=== PATIENT | male | born 1940 | race Caucasian/White ===

== ENCOUNTER → 2016-12-10 | Outpatient (CLI) | payer OTHER ==
--- NOTE | 2016-12-10 09:37 | US ---
Right Upper Quadrant Sonogram December 10, 2016 Indication: Indeterminate hypodensity in dome of liver. Please characterize with ultrasound. Findings: The nonspecific hypodense lesion in the dome of the liver corresponds to a well-circumscrib ed anechoic benign cyst measuring 3.4 x 3.2 x 2.0 cm. The cyst is identified in the previous report a nd on the ultrasound imaging to be in the right lobe; however, the lesion truly resides in the medial segment left lobe of the liver. Several smaller simple and minimally complex cysts are scattered thr oughout the liver. No mass or suspicious lesion. The normal-sized liver, measuring 14 cm in the midax illary line, has normal echogenicity and echotexture. No biliary dilation. The gallbladder is normal. No intraluminal stones, sludge, wall thickening, or sonographic Stover sig n. Common bile duct is normal caliber (5 mm). Portal vein is patent. The abdominal aorta is normal caliber with mild calcified atheroma. The right kidney is unremarkable. No hydronephrosis. The right kidney measures 11.2 cm in length x 5. 9 x 5.4 cm axially. A benign simple cyst in the central aspect of the right kidney measures 4.3 x 3.3 x 3.2 cm. No free fluid. The imaged portions of the pancreatic neck, head, and central body are normal. The pa ncreatic tail is obscured by bowel gas. Impressions 1. Benign hepatic cyst in dome of liver corresponds to finding on CT. No suspicious liver lesion. 2. Normal gallbladder. No biliary dilation or common bile duct stone. 3. Benign right renal cyst.
== END ==
LOC: CIMAGING 07:50
PROVIDERS: ATTEND Internal Medicine
DX: K76.89 Other specified diseases of liver (principal); N28.1 Cyst of kidney, acquired
CPT/HCPCS: 76705-PO

== ENCOUNTER → 2016-12-21 | Outpatient (CLI) | payer OTHER ==
--- NOTE | 2016-12-21 16:03 | DX ---
Abdomen single view 1031 hours Indication: Follow up left ureteral stone. Comparison: Abdominal radiograph dated November 02, 2016. Findings: A 6-mm calculus overlies the lower pole of the left kidney. The additional calculi previous ly on the October 2016 study are no longer evident. No calculi are evident along the course of the u reters or in the urinary bladder. Moderate constipation. Impression: Decreasing number of left renal calculi since October 2016.
== END ==
LOC: FIMAGING 10:24
PROVIDERS: ATTEND Specialist
DX: N20.0 Calculus of kidney (principal)

== ENCOUNTER → 2018-05-20 | Outpatient (CLI) | payer OTHER | LOC: CIMAGING 12:14 | PROVIDERS: ATTEND Specialist | DX: N20.0 Calculus of kidney (principal) | CPT/HCPCS: 74018-PO ==

== ENCOUNTER → 2018-05-23 | Outpatient (CLI) | payer OTHER | LOC: CIMAGING 17:44 | PROVIDERS: ATTEND Specialist | DX: N20.2 Calculus of kidney with calculus of ureter (principal); N13.30 Unspecified hydronephrosis; N26.1 Atrophy of kidney (terminal); I70.0 Atherosclerosis of aorta | CPT/HCPCS: 74176-PO ==

== ENCOUNTER 2018-05-24 18:08 | Inpatient (IN) | payer OTHER ==
--- NOTE | 2018-05-24 18:29 | EDPHY ---
H & P Stated Complaint: M.D. sent Time Seen by Provider: 05/24/18 18:28 - Personal History Current Tetanus/Diphtheria Vaccine: Yes Tetanus Vaccine Date: < 10 YEARS - Medical/Surgical History Hx Asthma: No Hx Chronic Respiratory Disease: No Hx Diabetes: No Hx Cardiac Disease: Yes Hx Renal Disease: Yes Hx Cirrhosis: No Hx Alcoholism: No Hx HIV/AIDS: No Hx Splenectomy or Spleen Trauma: No Other PMH: med hx-cholesterol,cad. surg-double hernia,left wrist - Social History Smoking Status: Former smoker Constitutional: Initial Vital Signs Temperature (C) 36.4 C 05/24/18 18:18 Heart Rate 52 L 05/24/18 18:18 Respiratory Rate 15 05/24/18 18:18 Blood Pressure 157/85 H 05/24/18 18:18 O2 Sat (%) 93 05/24/18 18:18 O2 Delivery Mode Room Air Allergies/Adverse Reactions: Penicillins Allergy (Unknown, Verified 05/24/18 19:26) Home Medications: Medication Instructions Recorded Alendronate Sodium [Fosamax 70 MG 70 mg PO WE@0700 05/24/18 (*)] Atorvastatin Calcium [Lipitor 40 40 mg PO DAILY 05/24/18 mg (*)] Herbals/Supplements -Info Only 1 ea PO DAILY 05/24/18 Metoprolol Succinate 12.5 mg PO HS 05/24/18 Medical Decision Making ED Course/Re-evaluation: CHIEF COMPLAINT: Obstructive nephrolithiasis HISTORY OF PRESENT ILLNESS: 77 y/o male with history of CAD presents at the request of his urologist, Dr. Hilton, for evaluation of bilateral obstructing ureteral stones. Additionally, patient has hyperkalemia and renal insufficiency secondary to the obstructive stones. The patient's symptoms began last Wednesday afternoon after he went horseback riding with his granddaughter. He has followed up in an outpatient setting with Dr. Hilton. Today, he was noted to have elevated creatinine and potassium levels, and referred to the emergency department for further workup and admission. He states he has been urinating normally and that his urine is a normal color. He denies fever, chest pain, shortness of breath, abdominal pain, hematuria, dysuria, or other associated symptoms. REVIEW OF SYSTEMS: A 10 point review of systems was performed and is negative with the exception of the elements mentioned in the history of present illness. PHYSICAL EXAM: HR, BP, O2 Sat, RR. Temp noted General Appearance: Alert, well hydrated, appropriate, and non-toxic appearing. Head: Atraumatic without scalp tenderness or obvious injury Eyes: Pupils equal, round, reactive to light and accommodation, EOMI, no trauma , no injection. Ears: Clear bilaterally, no perforation, normal landmarks Nose: Atraumatic, no rhinorrhea, clear. Throat: There is no erythema or exudates, no lesions, normal tonsils, mucus membranes moist. Neck: Supple, 2+ carotid upstroke, nontender, no lymphadenopathy. Respiratory: No retractions, no distress, no wheezes, and no accessory muscle use. Lungs are clear to auscultation bilaterally. Cardiovascular: Regular rate and rhythm, no murmurs, rubs, or gallops. Bilateral carotid, radial, dorsalis pedis, and posterior tibial pulses intact. Good capillary refill all extremities. Gastrointestinal: Abdomen is soft, nontender, non-distended, no masses, no rebound, no guarding, no peritoneal signs. Musculoskeletal: Normal active ROM of all extremities, atraumatic. Neurological: Alert, appropriate, and interactive. The patient has normal DTRs and non-focal cranial nerves, motor, sensory, and cerebellar exam. Skin: No rashes, good turgor, no nodules on palpation. Past medical history: Hyperlipidemia, CAD Past surgical history: Hernia repair, left wrist surgery Family history: Noncontributory Social history: Lives in [place]. . Retired. DIAGNOSTICS/PROCEDURES/CRITICAL CARE TIME: The 12 lead EKG was interpreted by myself. See hard copy and/or "tracemaster" electronic copy for interpretation. Sinus rhythm, rate 53. No EKG changes associated with hyperkalemia. DIFFERENTIAL DIAGNOSIS: Includes but not limited to acute renal failure secondary to pre-renal causes, intraparenchymal causes, post-renal causes; hyperkalemia, pyelonephritis, shingles, diverticulitis, appendicitis, and aortic aneurysm. MEDICAL DECISION MAKIN77 y/o male presents with post-renal kidney failure secondary to bilateral ureteral obstruction. Dr. Hilton, urologist, is following this patient. Plan to admit. Plan for labs including CBC, chemistries, liver, lipase, UA. Potassium 5.4. No EKG changes associated with hyperkalemia. Patient's creatinine is 7.7. 18:30 Consulted with hospitalist service. Dr. Jones accepts admission to PCU for renal failure secondary to bilateral ureteral obstruction, hyperkalemia. 18:[address] Bill, natural resource specialist. She does not recommend any intervention past resolution of the obstruction at this time. She will follow the patient's case. 20:[address] Hilton, urologist. He will order bilateral nephrostomy tubes through IR for the patient this evening. Patient will be admitted as above for perioperative management. - Data Points Laboratory Results: Laboratory Results 05/24/18 18:33 05/24/18 18:33 Sodium 140 mEq/L mEq/L (135-145) Potassium 5.4 mEq/L H mEq/L (3.3-5.0) Chloride 107 mEq/L mEq/L (97-110) Carbon Dioxide 15 mEq/l L mEq/l (22-31) Anion Gap 18 mEq/L H mEq/L (8-16) BUN 75 mg/dL H mg/dL (7-23) Creatinine 7.2 mg/dL H mg/dL (0.7-1.3) Estimated GFR 7 Glucose 80 mg/dL mg/dL (70-100) Calcium 8.7 mg/dL mg/dL (8.5-10.4) Total Bilirubin 0.4 mg/dL mg/dL (0.1-1.4) Conjugated Bilirubin 0.4 mg/dL mg/dL (0.0-0.5) Unconjugated Bilirubin 0.0 mg/dL mg/dL (0.0-1.1) AST 13 IU/L L IU/L (17-59) ALT 26 IU/L IU/L (21-72) Alkaline Phosphatase 48 IU/L IU/L (38-126) Total Protein 7.3 g/dL g/dL (6.3-8.2) Albumin 3.9 g/dL g/dL (3.5-5.0) Lipase 639 IU/L H IU/L (23-300) Departure - Departure Disposition: [facility] Acute Clinical Impression: Bilateral ureteral obstruction, Renal insufficiency, Hyperkalemia Condition: Fair Report Scribed for: Eitan Bazzi Report Scribed by: Sarah Mendoza Date of Report: 05/24/18 Time of Report: 18:33
--- NOTE | 2018-05-24 18:39 | CPEKG ---
Heart Rate: 53 RR Interval: 1132 P-R Interval: 152 QRSD Interval: 88 QT Interval: 436 QTC Interval: 410 P Brandt: 65 QRS Brandt: -6 T Wave Brandt: 29 EKG Severity - NORMAL ECG - EKG Impression: SINUS RHYTHM Electronically Signed By: Eitan Bazzi 24-May-2018 21:43:45
[2018-05-24 19:15] LABS: PLATELET COUNT 194 10^3/uL (150-400)
[2018-05-24] MEDS ORDERED: ceFAZolin 2 GM/DEXTROSE 100 ML IV ONE (20:25)
--- NOTE | 2018-05-24 20:31 | SOAPPROG ---
[facility] Progress Note Assessment/Plan: Assessment: Renal failure & hyperkalemia due to obstructing large bilateral ureterolithiasis : stable at this moment. No acute EKG changes, as per Dr. Bazzi. Plan: 1. Stat bilateral nephrostomy tube placement by IR tonight. 2. Ancef IV on-call to be given prior to IR procedure. 3. Currently on schedule to undergo intraoperative ureteroscopy & holmium laser lithotripsy of ureteral calculi this AM. Will continue w/ this surgical management plan for now, but might need to delay if he becomes clinically unstable between now and then. Subjective: Pt. seen in my office earlier today & noted on 05/23 CT to have large obstructing bilateral ureteral calculi. Pt. called at home & instructed to immediately present to ER once BMP results received from lab. Objective: Vital Signs Temp Pulse Resp BP Pulse Ox 36.4 C 52 L 15 157/85 H 93 05/24/18 18:18 05/24/18 18:18 05/24/18 18:18 05/24/18 18:18 05/24/18 18:18 Laboratory Results 05/24/18 18:40 ICD10 Worksheet Patient Problems: Problems Problem Status Onset Bilateral ureteral obstruction Acute Hyperkalemia Acute Renal insufficiency Acute
--- NOTE | 2018-05-24 20:47 | GHP ---
[f rep st] HISTORY AND PHYSICAL DATE OF ADMISSION: 05/24/2018 CHIEF COMPLAINT: Hyperkalemia. HISTORY OF PRESENT ILLNESS: This is a 77-year-old male with known kidney stones, who was referred fr om Dr. Hilton's office after he was noted to have a high potassium in clinic today. The patient repo rts some left lower quadrant pain that is described as moderate. It comes and goes. He is making ur ine. He has been able to eat. He denies any fevers or chills currently. He did have some chills 2 nights ago. PAST MEDICAL HISTORY: Kidney stones, hypertension, dyslipidemia, as well as osteopenia. PAST SURGICAL HISTORY: Vasectomy, tonsillectomy, bilateral hernia repair, wrist ORIF. HOME MEDICATIONS: Reviewed. Refer to [employer] for details. ALLERGIES: Penicillin. SOCIAL HISTORY: Lives in [place] with his . He drinks alcohol occasionally. He denies any to bacco or illicit drug use. FAMILY HISTORY: Reviewed and noncontributory. REVIEW OF SYSTEMS: Comprehensive 10-point review of systems was done and is negative, except for as mentioned in the HPI. PHYSICAL EXAM: VITAL SIGNS: Blood pressure 137/85, pulse 52, respiratory rate 15, O2 saturation 93% on room air. Temperature afebrile. GENERAL: No acute distress. HEENT: Head normocephalic, atra umatic. Eyes are PERRLA. Sclerae anicteric. Mouth: Moist mucous membranes. NECK: Supple. No lymph adenopathy. CARDIOVASCULAR: S1-S2. No murmurs, rubs, clicks, gallops. No JVD. No lower extremity edema. PULMONARY: Lungs are clear. No wheezes, rales, or rhonchi. ABDOMEN: Soft, nontender, non distended. No guarding or rebound tenderness. Normoactive bowel sounds. EXTREMITIES: No clubbing or cyanosis. NEURO: Cranial nerves 2-12 grossly intact. No focal motor or sensory deficits. SKIN: Clear. No rashes. DIAGNOSTICS: CT abdomen and pelvis, done yesterday, 05/23/2018, shows moderate bilateral hydronephr osis, left greater than right, with bilateral ureterolithiasis, with a left mid ureteral 13 mm calcul us, and 2 right mid ureteral calculi, measuring up to 16 mm. Labs: WBC 7.5, hemoglobin 12.6, hematocrit 37.4, platelets 194. Sodium 140. Potassium 5.4; it was 6.4 earlier today. Chloride 107, BUN 75, creatinine 7.2, glucose 80. UA: 2+ blood, 10-15 RBCs, 1+ ba cteria. EKG, which I visualized and personally interpreted, shows sinus rhythm, rate 53 beats per minute. No acute ischemic changes. No peaked T-waves. Normal QRS. ASSESSMENT/PLAN: 1. This is a 77-year-old male, presenting with bilateral ureteral obstruction and obstructive uropat hy causing acute kidney injury. I discussed the case with Dr. Bazzi in the emergency department, wh o has been in contact with Dr. Hilton, who plans for nephrostomy tube placement tomorrow. I think th is is reasonable, given his potassium of 5.4. He will be monitored on telemetry. We will defer any further treatment of his hyperkalemia at this time. We will repeat a metabolic panel in the morning. 2. Hypertension. Will continue home dose of metoprolol. Monitor blood pressure. 3. Apparent history of osteopenia or osteoporosis. He is on Fosamax. Will hold Fosamax, given his acute kidney injury. The patient requests to be full code status. /[id number]/MODL
[2018-05-24] MEDS ORDERED: METOPROLOL SUCCINATE XR 25 MG TAB PO SCH (21:00)
[2018-05-24] MEDS ORDERED: fentaNYL 100 MCG/2 ML INJ IVP PRN (22:05)
[2018-05-24] MEDS ORDERED: MIDAZOLAM 2 MG/2 ML VIAL IVP PRN (22:05)
[2018-05-24] MEDS ORDERED: FLUMAZENIL 0.5 MG/5 ML MDV IVP PRN (22:05)
[2018-05-24] MEDS ORDERED: MEPERIDINE 25 MG/ML SYR IVP PRN (22:05)
[2018-05-24] MEDS ORDERED: NALOXONE HCL 0.4 MG/ML INJ IVP PRN (22:05)
--- NOTE | 2018-05-24 22:49 | PDPROPOC ---
Sedation Plan of Care Sedation Plan of Care: vital signs stable, mental status noted, patient educated of risks, benefits, alternatives, patient can tolerate sedation ASA Classification: ASA 3 Planned drugs: fentanyl, midazolam Mallampati Score: Class 1 Mallampati Reference Image: Patient passed 3-3-2 rule?: Yes
[2018-05-24] MEDS ORDERED: fentaNYL 100 MCG/2 ML INJ ONE (23:22)
[2018-05-24] MEDS: NS 1,000 ML IV SCH (23:35)
--- NOTE | 2018-05-25 00:09 | PDRADPN ---
Radiology Procedure Note Date of Procedure: 05/25/18 Radiologist: Rhonda Mishra Pre-op Diagnosis: BILATERAL RENAL/URETERAL STONES Post-op Diagnosis: SAME Indication: ELEVATED CR AND K Procedure: BILATERAL PERC NEPH ACCESS Finding(s): COMPLETE OBSTRUCTION ON LT. NO OBSTRUCTION ON RIGHT WITH RAPID DRAINAGE TO BLADDER. RT RENAL CYST NEAR PELVIS Inf/Abcess present in the surg proc area at time of surgery?: No Complications: NONE IMMEDIATELY Drains: Nephrostomy (BILATERAL 8FR)
[2018-05-25] MEDS ORDERED: CALCIUM GLUCONATE 2 GM in D5W 50 ML IV ONE (08:30)
[2018-05-25] MEDS ORDERED: SODIUM POLY SULF 15 GM/60 ML BOTTLE PO ONE (08:30)
[2018-05-25] MEDS ORDERED: SODIUM BICARBONATE 50 MEQ/50 ML SYR IV ONE (08:30)
--- NOTE | 2018-05-25 10:30 | HOSPPROG ---
Hospitalist Progress Note Assessment/Plan: # renal failure - suspect post-obstructive but no reported R sided obstruction - making urine now - also had diarrhea, was taking low dose ibup - cont IVF - check CK (on lipitor) - recheck BMP at 11 # renal stones - definitive management per Dr Hilton # hyperkalemia, critical - received emergent kayexalate, Ca-gluc, bicarb - recheck at 11 # htn - slightly hypotensive now, hold metop Subjective: pain better today; we discussed his renal and potassium issues Objective: Vital Signs Temp Pulse Resp BP Pulse Ox 36.8 C 58 L 12 96/63 L 92 05/25/18 07:37 05/25/18 07:37 05/25/18 07:37 05/25/18 07:37 05/25/18 07:37 Laboratory Results 05/24/18 18:40 05/25/18 03:11 05/24/18 05/25/18 05/26/18 05:59 05:59 05:59 Intake Total 1150 850 Output Total 50 650 Balance 1100 200 - Physical Exam Constitutional: no apparent distress, appears nourished Cardiovascular: regular rate and rhythym, no murmur, rub, or gallop, systolic murmur Respiratory: no respiratory distress, no rales or rhonchi, clear to auscultation Gastrointestinal: soft, non-tender abdomen, no palpable masses, other (bilat nephrostomies with reddish urine), No guarding, No rebound ICD10 Worksheet Patient Problems: Problems Problem Status Onset Bilateral ureteral obstruction Acute Renal insufficiency Acute Hyperkalemia Acute
[2018-05-25] MEDS: NS 1,000 ML IV SCH (10:38)
--- NOTE | 2018-05-25 11:56 | ASMTCMCOM ---
CM Note CM Note Notes: 05/25/2018 Case Management Note Discussed pt during rounds this morning. Pt admitted for treatment of renal failure r/t bilateral ureter obstruction and hyperkalemia. Prior to admission, pt was living independently with his in his own home. There are no PT or OT evals ordered at this time. There are no identified case management d/c needs. Case Management d/c poc: anticipating independent with follow up as directed. Case Management available if needs change. Date Signed: 05/25/2018 11:55 AM Electronically Signed By:Kemi Sneed RN
[2018-05-25 12:22] LABS: CREATINE KINASE 61 IU/L (0-224)
--- NOTE | 2018-05-25 12:40 | PDMN ---
Medical Necessity Medical necessity: Change to IP, as of 05/25/18, per MD; los >2 mn for ongoing management of life threatening hyperkalemia w/potassium of 6.1 & renal failure w /creatinine of 7.7 s/p emergent bilateral nephrostomy tube placement; admit for close monitoring, follow-up labs, IVFs & Urology consult w/additional surgical management; per progress note & order 05/25/18
[2018-05-25] MEDS ORDERED: SODIUM BICARBONATE 150 MEQ in D5W 1,000 ML IV SCH (13:30)
[2018-05-25] MEDS: ATORVASTATIN CALCIUM 40 MG TAB PO SCH (13:47)
[2018-05-25] MEDS ORDERED: oxyCODONE IR 5 MG TAB PO PRN (14:52)
[2018-05-25] MEDS: ACETAMINOPHEN 325 MG TAB PO PRN ×2 (15:26→22:12)
--- NOTE | 2018-05-25 18:24 | SOAPPROG ---
[facility] Progress Note Assessment/Plan: Assessment: Renal failure & hyperkalemia due to obstructing large bilateral ureterolithiasis : slowly improving since undergoing bilateral nephrostomy tube placement last night. However, he does not appear to be in a position to undergo surgical stone management at this time. Plan: 1. Continue bilateral nephrostomy tube placement -- he will need to be discharged home with these once he is deemed ready for discharge. 2. We will reschedule intraoperative ureteroscopy & holmium laser lithotripsy of ureteral calculi, possibly late next week, but this will depend on his clinical course between now and then. All pt. questions regarding this were answered this evening. Case discussed w/ Dr. Fenton earlier today, and we are both in agreement with postponement of surgical intervention. Subjective: Feels better since nephrostomy tube placement with resolution in left flank pain. Objective: Vital Signs Temp Pulse Resp BP Pulse Ox 36.9 C 54 L 14 139/67 H 95 05/25/18 16:16 05/25/18 16:16 05/25/18 16:16 05/25/18 16:16 05/25/18 16:16 Laboratory Results 05/25/18 17:19 05/24/18 05/25/18 05/26/18 05:59 05:59 05:59 Intake Total 1625 Output Total 1200 Balance 425 Physical Exam - Physical Exam General Appearance: WD/WN, alert, no apparent distress Abdomen: non-tender, soft Back: Other (bilateral nephrostomy tubes draining relatively clear urine) Extremities: non-tender, normal inspection Neuro/Psych: alert, normal mood/affect, oriented x 3 ICD10 Worksheet Patient Problems: Problems Problem Status Onset Bilateral ureteral obstruction Acute Hyperkalemia Acute Renal insufficiency Acute
[2018-05-26] MEDS: ACETAMINOPHEN 325 MG TAB PO PRN ×3 (07:50→19:14)
[2018-05-26] MEDS: ATORVASTATIN CALCIUM 40 MG TAB PO SCH (07:51)
--- NOTE | 2018-05-26 08:32 | HOSPPROG ---
Hospitalist Progress Note Assessment/Plan: # renal failure - suspect post-obstructive but no reported R sided obstruction - also had diarrhea, was taking low dose ibup - good UOP - stop IVF - renal consult today given sluggish return of renal function # renal stones - definitive management per Dr Hilton; agree in delaying this given acute renal failure # hyperkalemia - much better # htn - will need to restart metop soon Subjective: low energy but feels ok overall; good uop Objective: Vital Signs Temp Pulse Resp BP Pulse Ox 36.7 C 51 L 15 143/80 H 90 L 05/26/18 04:00 05/26/18 07:44 05/26/18 07:44 05/26/18 07:44 05/26/18 07:44 Laboratory Results 05/26/18 05:57 05/25/18 05/26/18 05/27/18 05:59 05:59 05:59 Intake Total 2455 Output Total 2340 Balance 115 hig risk with persistent renal failure - Physical Exam Constitutional: no apparent distress, appears nourished Cardiovascular: regular rate and rhythym, no murmur, rub, or gallop, systolic murmur Respiratory: no respiratory distress, no rales or rhonchi, clear to auscultation Gastrointestinal: soft, non-tender abdomen, no palpable masses, No guarding, No rebound, No distension ICD10 Worksheet Patient Problems: Problems Problem Status Onset Bilateral ureteral obstruction Acute Renal insufficiency Acute Hyperkalemia Acute
--- NOTE | 2018-05-26 10:25 | PDCONSULT ---
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 Cr peaked at 7.2, now s/p nephrostomy tubes placement and Cr steadily coming down, 5.1 today. Metabolic acidosis and hyperkalemia improved. - No need for HD. - Will give 1/2NS, encouraged fluid intake. - Will continue to monitor, plan on outpatient f/u after discharge. - Avoid hypotension and nephrotoxins, sravan NSAIDs. Hyperkalemia: improved,, pt on low K diet, will continue to monitor. Metabolic acidosis: now improved after getting bicarb yesterday, will continue to monitor off bicarb. Nephrolithiasis: pt following with urology, has bilateral nephrostomy tubes for bilateral obstruction. Will plan on litholink as outpatient for further stratification of risk factors for stone formation. Thank you for the interesting consult. Nephrology will continue to follow, please call if you have any additional questions or concerns. H & P Stated Complaint: M.D. sent Time Seen by Provider: 05/24/18 18:28 HPI/ROS: HPI: Mr. Bingham is a 77 yo M with h/o nephrolithiasis who was admitted for bilateral renal obstruction. Pt states that he started to have pain in his flank Wednesday last week after going horseback riding. He started taking 600mg ibuprofen daily for the pain. He contacted urology, had a KUB done on Wednesday, then a CT scan on Wednesday. On Wednesday he was brought in as he had bilateral nephrolithiasis causing obstruction, had nephrostomy tubes placed that night. On presentation, his K was elevated at 5.4 and Cr was elevated at 7.2, baseline is around 0.8. Since then, his Cr has trended down. He still had hyperkalemia and metabolic acidosis yesterday, was placed on IVFs with bicarb, which have been stopped this morning. He is having good drainage from his nephrostomy tubes. He has no swelling. His only pain is some at the nephrostomy tube site but prior pain is much improved. ROS: Positive per HPI, rest of 10-point ROS negative Source: Patient - Personal History Current Tetanus/Diphtheria Vaccine: Yes Tetanus Vaccine Date: < 10 YEARS - Medical/Surgical History Hx Asthma: No Hx Chronic Respiratory Disease: No Hx Diabetes: No Hx Cardiac Disease: Yes Hx Renal Disease: No Hx Cirrhosis: No Hx Alcoholism: No Hx HIV/AIDS: No Hx Splenectomy or Spleen Trauma: No Other PMH: med hx-cholesterol,cad. surg-double hernia,left wrist. Nephrolithiasis - Family History Significant Family History: No pertinent family hx - Social History Smoking Status: Former smoker - Physical Exam Exam: General: alert and oriented, no acute distress Eyes: EOMI, PERRL OP: Clear, MMM Neck: supple, no thyromegaly CV: RRR, no edema BLE Resp: CTA bilat, nonlabored respirations on RA Abd: Soft, NT/ND Neuro: CN II-XII Grossly intact, no asterixis Psych: cooperative, appropriate mood and affect Skin: C/D/I, no rash Constitutional: Initial Vital Signs Temperature (C) 36.4 C 05/24/18 18:18 Heart Rate 52 L 05/24/18 18:18 Respiratory Rate 15 05/24/18 18:18 Blood Pressure 157/85 H 05/24/18 18:18 O2 Sat (%) 93 05/24/18 18:18 O2 Delivery Mode Room Air O2 (L/minute) 2 Allergies/Adverse Reactions: Penicillins Allergy (Unknown, Verified 05/24/18 19:26) Home Medications: Medication Instructions Recorded Alendronate Sodium [Fosamax 70 MG 70 mg PO WE@0700 05/24/18 (*)] Atorvastatin Calcium [Lipitor 40 40 mg PO DAILY 05/24/18 mg (*)] Herbals/Supplements -Info Only 1 ea PO DAILY 05/24/18 Metoprolol Succinate 12.5 mg PO HS 05/24/18 Lab and Imaging 05/24/18 18:40 05/26/18 05:57 WBC 7.54 10^3/uL (3.80-9.50) 05/24/18 18:40 RBC 3.98 10^6/uL (4.40-6.38) L 05/24/18 18:40 Hgb 12.6 g/dL (13.7-17.5) L 05/24/18 18:40 POC Hgb 13.6 gm/dL (13.7-17.5) L 05/24/18 18:48 Hct 37.4 % (40.0-51.0) L 05/24/18 18:40 POC Hct 40 % (40-51) 05/24/18 18:48 MCV 94.0 fL (81.5-99.8) 05/24/18 18:40 MCH 31.7 pg (27.9-34.1) 05/24/18 18:40 MCHC 33.7 g/dL (32.4-36.7) 05/24/18 18:40 RDW 12.5 % (11.5-15.2) 05/24/18 18:40 Plt Count 194 10^3/uL (150-400) 05/24/18 18:40 MPV 9.5 fL (8.7-11.7) 05/24/18 18:40 Neut % (Auto) 66.0 % (39.3-74.2) 05/24/18 18:40 Lymph % (Auto) 17.2 % (15.0-45.0) 05/24/18 18:40 Terry % (Auto) 11.3 % (4.5-13.0) 05/24/18 18:40 Eos % (Auto) 4.9 % (0.6-7.6) 05/24/18 18:40 Baso % (Auto) 0.3 % (0.3-1.7) 05/24/18 18:40 Nucleat RBC Rel Count 0.0 % (0.0-0.2) 05/24/18 18:40 Absolute Neuts (auto) 4.98 10^3/uL (1.70-6.50) 05/24/18 18:40 Absolute Lymphs (auto) 1.30 10^3/uL (1.00-3.00) 05/24/18 18:40 Absolute Monos (auto) 0.85 10^3/uL (0.30-0.80) H 05/24/18 18:40 Absolute Eos (auto) 0.37 10^3/uL (0.03-0.40) 05/24/18 18:40 Absolute Basos (auto) 0.02 10^3/uL (0.02-0.10) 05/24/18 18:40 Absolute Nucleated RBC 0.00 10^3/uL (0-0.01) 05/24/18 18:40 Immature Gran % 0.3 % (0.0-1.1) 05/24/18 18:40 Immature Gran # 0.02 10^3/uL (0.00-0.10) 05/24/18 18:40 POC Sodium 140 mEq/L (135-145) 05/24/18 18:48 Sodium 142 mEq/L (135-145) 05/26/18 05:57 POC Potassium 5.4 mEq/L (3.3-5.0) H 05/24/18 18:48 Potassium 4.6 mEq/L (3.3-5.0) 05/26/18 05:57 POC Chloride 111 mEq/L (97-110) H 05/24/18 18:48 Chloride 108 mEq/L (97-110) 05/26/18 05:57 Carbon Dioxide 23 mEq/l (22-31) 05/26/18 05:57 Anion Gap 11 mEq/L (8-16) 05/26/18 05:57 POC BUN 80 mg/dL (7-23) H 05/24/18 18:48 BUN 74 mg/dL (7-23) H 05/26/18 05:57 Creatinine 5.1 mg/dL (0.7-1.3) H 05/26/18 05:57 POC Creatinine 7.7 mg/dL (0.7-1.3) H* 05/24/18 18:48 Estimated GFR 11 05/26/18 05:57 Glucose 83 mg/dL (70-100) 05/26/18 05:57 POC Glucose 84 mg/dL (70-100) 05/24/18 18:48 Calcium 7.8 mg/dL (8.5-10.4) L 05/26/18 05:57 Total Bilirubin 0.4 mg/dL (0.1-1.4) 05/24/18 18:33 Conjugated Bilirubin 0.4 mg/dL (0.0-0.5) 05/24/18 18:33 Unconjugated Bilirubin 0.0 mg/dL (0.0-1.1) 05/24/18 18:33 AST 13 IU/L (17-59) L 05/24/18 18:33 ALT 26 IU/L (21-72) 05/24/18 18:33 Alkaline Phosphatase 48 IU/L (38-126) 05/24/18 18:33 Creatine Kinase 61 IU/L (0-224) 05/25/18 11:40 Total Protein 7.3 g/dL (6.3-8.2) 05/24/18 18:33 Albumin 3.9 g/dL (3.5-5.0) 05/24/18 18:33 Lipase 639 IU/L (23-300) H 05/24/18 18:33 Urine Color PALE YELLOW 05/24/18 19:18 Urine Appearance CLEAR 05/24/18 19:18 Urine pH 5.0 (5.0-7.5) 05/24/18 19:18 Ur Specific [place] 1.008 (1.002-1.030) 05/24/18 19:18 Urine Protein NEGATIVE (NEGATIVE) 05/24/18: Urine Ketones NEGATIVE (NEGATIVE) 05/24/18 19:18 Urine Blood 2+ (NEGATIVE) H 05/24/18 19:18 Urine Nitrate NEGATIVE (NEGATIVE) 05/24/18: Urine Bilirubin NEGATIVE (NEGATIVE) 05/24/18 19:18 Urine Urobilinogen NEGATIVE EU (0.2-1.0) 05/24/18 19:18 Ur Leukocyte Esterase NEGATIVE (NEGATIVE) 05/24/18 19:18 Urine RBC 10-15 /hpf (0-3) H 05/24/18 19:18 Urine WBC 1-3 /hpf (0-3) 05/24/18 19:18 Ur Epithelial Cells NONE SEEN /lpf (NONE-1+) 05/24/18 19:18 Urine Bacteria 1+ /hpf (NONE SEEN) H 05/24/18 19:18 Urine Mucus TRACE /lpf (NONE-1+) 05/24/18 19:18 Urine Osmolality 384 mosmo/kg (300-900) 05/25/18 10:00 Ur Random Sodium 67 mEq/L (30-90) 05/25/18 10:00 Urine Glucose NEGATIVE (NEGATIVE) 05/24/18:18
[2018-05-26] MEDS: 1/2 NS 1,000 ML IV SCH (12:15)
[2018-05-27] MEDS: ACETAMINOPHEN 325 MG TAB PO PRN ×5 (02:42→22:29)
[2018-05-27] MEDS: 1/2 NS 1,000 ML IV SCH ×2 (02:43→16:20)
[2018-05-27] MEDS: ATORVASTATIN CALCIUM 40 MG TAB PO SCH (08:36)
--- NOTE | 2018-05-27 12:31 | SOAPPROG ---
[facility] Progress Note Assessment/Plan: Assessment/Plan: 77 yo M with bilateral obstructing nephrolithiasis and YANIV s/p nephrostomy tubes. YANIV: - Baseline Cr reportedly normal, peak 7.2mg/dL - down to 4.1mg/dL today, would k - No need for HD, however would keep inpatient until Cr <3.5 - Will give 1/2NS, encouraged fluid intake. - Will continue to monitor, plan on outpatient f/u after discharge. - Avoid NSAID use Hyperkalemia: Resolved with UO. Hypocalcemia: Corrects with albumin, no repletion needed. Metabolic acidosis: >20, monitor off bicarb Hyperphosphatemia: low 6's today. hold binder for now and renal diet as above. Nephrolithiasis: - urology following s/p b/l nephrostomy tubes with good output - will arrange f/u as outpt for litholink stone work-up - stay well hydrated 05/27/18 12:31 Subjective: Patient feeling better. States UO is clear. 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 Objective: Vital Signs Temp Pulse Resp BP Pulse Ox 36.8 C 51 L 15 139/67 H 91 L 05/27/18 08:00 05/27/18 08:00 05/27/18 08:00 05/27/18 08:00 05/27/18 08:00 Laboratory Results 05/27/18 03:07 05/26/18 05/27/18 05/28/18 05:59 05:59 05:59 Intake Total 2455 3053 Output Total 2340 3350 855 Balance 115 -297 -855 Physical Exam - Physical Exam General Appearance: WD/WN, alert, no apparent distress, thin EENT: PERRL/EOMI Neck: non-tender, full range of motion, supple Respiratory: chest non-tender, lungs clear, normal breath sounds Cardiac/Chest: normal peripheral pulses, regular rate, rhythm Abdomen: normal bowel sounds, non-tender, soft, other (b/l nephrostomies in place with light brown urine) Skin: normal color, warm/dry Extremities: normal range of motion, non-tender Neuro/Psych: no motor/sensory deficits, alert, normal mood/affect, oriented x 3 ICD10 Worksheet Patient Problems: Problems Problem Status Onset Bilateral ureteral obstruction Acute Hyperkalemia Acute Renal insufficiency Acute
--- NOTE | 2018-05-27 15:26 | HOSPPROG ---
Hospitalist Progress Note Assessment/Plan: 77 yo M with nephrolithiasis sent from urologist with concerns of Jaelyn and hyperkalemia # renal failure - in the setting of obstructing nephrolithiasis and NSAID use. Abd CT personally reviewed notable for bilateral hydronephrosis and now s/p bilateral nephrostomy placement with continued improvement in creatinine since then. Creat still remains a bit too elevated for discharge and would like to see creat < 3.5 prior to dc per renal. Holding nephrotoxins and renally dosing meds. Will need definitive mgmt of kidney stones per Dr. Hilton. # renal stones - definitive management per Dr Hilton; agree in delaying this given acute renal failure # hyperkalemia - 2/2 Jaelyn, improved # htn - will resume metoprolol # IP status # patient new to my care. Old records reviewed and summarized as above. Care plan reviewed with CM/nursing on rounds. Subjective: no significant overnight events, patient reports feeling much better , he is wondering when he can go home Objective: Vital Signs Temp Pulse Resp BP Pulse Ox 36.8 C 49 L 14 156/82 H 98 05/27/18 08:00 05/27/18 12:00 05/27/18 12:00 05/27/18 12:00 05/27/18 12:00 Laboratory Results 05/27/18 03:07 05/26/18 05/27/18 05/28/18 05:59 05:59 05:59 Intake Total 2455 3053 240 Output Total 2340 3350 1680 Balance 115 -297 -1440 awake alert anicteric op clear rrr no mrg ctab soft nt nd + bilateral nephrostomy tubes with yellow urine no cce warm dry well perfused ICD10 Worksheet Patient Problems: Problems Problem Status Onset Bilateral ureteral obstruction Acute Hyperkalemia Acute Renal insufficiency Acute
--- NOTE | 2018-05-27 16:03 | ASMTCMCOM ---
CM Note CM Note Notes: 05/27/2018 Case Management Note Discussed pt during rounds today. Met w/pt and RN to discuss d/c needs. Pt to likely d/c with nephrostomy tubes intact. [facility] will provide RN to flush tubes and monitor for infection. Pt primary MD is Dr. Rosa Hinkle. Pt is ambulating without difficulty and is independent in ADL's. Pt shared that his is disabled with a complicated medical history. Pt has hired a private caregiver to support his however pt is the primary caregiver. 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 Date Signed: 05/27/2018 04:02 PM Electronically Signed By:Kemi Sneed RN
[2018-05-27] MEDS: METOPROLOL TARTRATE 25 MG TAB PO SCH (20:58)
[2018-05-28] MEDS: 1/2 NS 1,000 ML IV SCH (06:52)
[2018-05-28] MEDS: METOPROLOL TARTRATE 25 MG TAB PO SCH (10:14)
[2018-05-28] MEDS: ATORVASTATIN CALCIUM 40 MG TAB PO SCH (10:14)
[2018-05-28 11:06] VITALS: BP 125/74
--- NOTE | 2018-05-28 13:19 | PDDCSUM ---
Discharge Summary Discharge Summary: Dates of service 05/24-05/28/18 Consultations: urology, renal Procedures performed: bilateral nephrostomy tube placement Hospital course by problem: 77 yo M with nephrolithiasis sent from urologist with concerns of JAELYN and hyperkalemia # renal failure - in the setting of obstructing nephrolithiasis and NSAID use. Abd CT personally reviewed notable for bilateral hydronephrosis and s/p bilateral nephrostomy placement with continued improvement in creatinine since then. Creat has continued to trend down and now 3.1. Will f/u with renal, they discussed with him the need to keep up with fluid intake. Will need definitive mgmt of kidney stones per Dr. Hilton. # renal stones --obstructive - definitive management per Dr Hilton; agree in delaying this given acute renal failure # hyperkalemia - 2/2 Jaelyn, improved # htn - will resume metoprolol dc home f/u with urology and renal as well as PCP Items for f/u: monitoring of creatinine --ultimate management of kidney/ureteral stones --removal of nephrostomy tubes > 35 min spent in dc more than half in coordination of care
--- NOTE | 2018-05-28 14:47 | SOAPPROG ---
[facility] Progress Note Assessment/Plan: Assessment: 77 yo male admitted with acute renal failure 2/2 bilateral obstructing stones. Cr downtrending after nephrostomy tubes. Ready for discharge today. # bilateral nephrolithiasis -counseled patient that he needs to drink enough fluids to make 2.5-3L of urine per day -patient notes that previous stones were calcium-based. Encouraged to continue to follow low sodium diet and to try to follow low oxalate diet -will follow-up in our clinic. patient to call our clinic if does not receive a call regarding appointment scheduling -urine volume seems appropriate at this point given that patient still has edema. instructed patient to call our clinic or go to the ED if develops lightheadedness -ok for discharge 05/28/18 14:47 Subjective: Patient feeling well. No shortness of breath or dizziness. Looking forward to discharge. Cr downtrending nicely after placement of nephrostomy tubes. Objective: Vital Signs Temp Pulse Resp BP Pulse Ox 36.8 C 57 L 15 125/74 H 94 05/28/18 11:04 05/28/18 11:04 05/28/18 11:04 05/28/18 11:04 05/28/18 11:04 Laboratory Results 05/28/18 03:09 05/27/18 05/28/18 05/29/18 05:59 05:59 05:59 Intake Total 3053 2250 900 Output Total 3350 4330 1370 Balance -297 -2080 -470 Exam: General: awake, alert, well-appearing, NAD Pulm: CTAB, no wheezes or rales, breathing comfortably on RA CV: NRRR, no g/m/r Abd: soft, non-tender, non-distended, bilateral nephrostomy tubes Skin: no rashes or bruises on exposed skin Extrem: trace-1+ edema in bilateral LE ICD10 Worksheet Patient Problems: Problems Problem Status Onset Bilateral ureteral obstruction Acute Hyperkalemia Acute Renal insufficiency Acute
--- NOTE | 2018-05-28 15:01 | PDIAF ---
- Diagnosis Code Status: Full Code - Medication Management Discharge Medications: Medications to Continue on Transfer Alendronate Sodium [Fosamax 70 MG (*)] 70 mg PO WE@0700 05/24/18 [Last Taken ] Atorvastatin Calcium [Lipitor 40 mg (*)] 40 mg PO DAILY 05/24/18 [Last Taken ] Herbals/Supplements -Info Only 1 ea PO DAILY 05/24/18 [Last Taken 05/24/18] Metoprolol Tartrate [Lopressor 25 mg (*)] 12.5 mg PO BID #30 tab 05/28/18 [Last Taken Unknown] oxyCODONE IR [Oxycodone Ir (*)] 5 mg PO Q4HRS PRN #20 tab 05/28/18 [Last Taken Unknown] Discharge Medications: Refer to the Discharge Home Medication list for PRN reason. - Orders Services needed: Home Care, Registered Nurse Home Care Face to Face: I certify that this patient was under my care and that I had the required [id number] encounter meeting the encounter requirements on the discharge day. My findings support the fact that the patient is homebound as defined in Home Care Face to Face Continued: CMS Chapter 7 Medicare Benefits Manual 30.1.1 , The condition of the patient is such that there exists a normal inability to leave home and consequently, leaving home would require a considerable and taxing effort. Diet Recommendation: no restrictions on diet Equipment: Bilateral nephrostomy tubes--usual care Additional Instructions: Dr. Hilton's office will contact you next week about scheduling futher procedures - Labs/Radiology BMP Date: 05/30/18 - Follow Up Care Current Providers and Referrals: Rosa Thacker MD [Primary Care Provider] - As per Instructions Susan Hilton MD [Medical Doctor] - Bonita Villa MD [Medical Doctor] -
--- NOTE | 2018-05-28 15:06 | ASMTCMCOM ---
CM Note CM Note Notes: Pt ready for DC.. Met with pt to discuss HC referral. Pt and RN feel that pt can manage the care for his tubes. No needs. Alerted [facility]. Date Signed: 05/28/2018 03:05 PM Electronically Signed By:Arlette Guido LCSW
--- NOTE | 2018-05-30 09:11 | ASDISCHSUM ---
Discharge Information Plan Status:Home with No Needs Medically Cleared to Leave:05/28/2018 Discharge Date:05/28/2018 03:29 PM CM D/C Disposition:Home, Routine, Self-Care ADT D/C Disposition:Home, Routine, Self-Care Projected Discharge Date:05/28/2018 11:00 AM Transportation at D/C: Discharge Delay Reason: Follow-Up Date:05/28/2018 11:00 AM Discharge Slot: Final Diagnosis: Placement Information Referral Type:*Home Health Care Services Referral ID:[id number] Provider Name: Address 1: Phone Number: Address 2: Fax Number: City: [place]: State: Patient Contact Information Contact Name:RICHARD Relationship: Address:[address] Work Phone: City:[place] Phone: [facility] Code:[place] [address] Email: Financial Information Financial Class:Medicare Primary Plan Desc:MEDICARE INPATIENT Primary Plan Number:[id number] Secondary Plan Desc: Secondary Plan Number: Assessment Information [facility] CM Progress Note CM Note CM Note Notes: 05/25/2018 Case Management Note Discussed pt during rounds this morning. Pt admitted for treatment of renal failure r/t bilateral ureter obstruction and hyperkalemia. Prior to admission, pt was living independently with his in his own home. There are no PT or OT evals ordered at this time. There are no identified case management d/c needs. Case Management d/c poc: anticipating independent with follow up as directed. Case Management available if needs change. Date Signed: 05/25/2018 11:55 AM Electronically Signed By:Kemi Sneed RN [facility] CM Progress Note CM Note CM Note Notes: 05/27/2018 Case Management Note Discussed pt during rounds today. Met w/pt and RN to discuss d/c needs. Pt to likely d/c with nephrostomy tubes intact. [facility] will provide RN to flush tubes and monitor for infection. Pt primary MD is Dr. Rosa Hinkle. Pt is ambulating without difficulty and is independent in ADL's. Pt shared that his is disabled with a complicated medical history. Pt has hired a private caregiver to support his however pt is the primary caregiver. 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 Date Signed: 05/27/2018 04:02 PM Electronically Signed By:Kemi Sneed RN [facility] CM Progress Note CM Note CM Note Notes: Pt ready for DC.. Met with pt to discuss HC referral. Pt and RN feel that pt can manage the care for his tubes. No needs. Alerted [facility]. Date Signed: 05/28/2018 03:05 PM Electronically Signed By:Arlette Guido LCSW Intervention Information Intervention Type:*SWETA-Signed Date of Service:05/25/2018 10:54 AM Patient Type:Observation Staff Member:Sharon Bautista Hours: Discipline: Severity: Comment:
== END 2018-05-28 15:29 | disposition home or self-care (01) | DRG 694 ==
LOC: INTOOBSV 18:39 → F2W 20:55 → OBSVTOIN 05-25 10:30
PROVIDERS: ADMIT Family Medicine; ATTEND Family Medicine
DX: N20.0 Calculus of kidney (principal); N17.9 Acute kidney failure, unspecified; E87.5 Hyperkalemia; I10 Essential (primary) hypertension; M81.0 Age-related osteoporosis without current pathological fracture
CPT/HCPCS: 74176-PO; 82435-PO; 82565-PO; 82947-PO; 84132-PO; 84295-PO; 84520-PO; 85014-PO; C1729; C1769; J0610; J0696; J3010

== ENCOUNTER 2018-06-02 11:26 | Day surgery (SDC) | payer OTHER ==
[2018-06-02] MEDS ORDERED: levOFLOXACIN 500 MG/DEXTROSE 100 ML IV ONE (11:46)
[2018-06-02] MEDS ORDERED: LIDOCAINE 1% 2 ML INJ ID PRN (11:48)
[2018-06-02] MEDS ORDERED: LR 1,000 ML IV ONE (11:48)
[2018-06-02] MEDS ORDERED: LIDOCAINE 1% 2 ML INJ ONE (11:59)
--- NOTE | 2018-06-02 13:13 | PDANEPAE ---
ANE History of Present Illness ureteroscopy and lythotripsy, B ANE Past Medical History - Cardiovascular History Hx Hypertension: No Hx Arrhythmias: Yes Hx Chest Pain: Yes Hx CHF / Valvular Disease: No Hx Palpitations: No - Pulmonary History Hx COPD: No Hx Asthma/Reactive Airway Disease: No Hx Recent Upper Respiratory Infection: No Hx Oxygen in Use at Home: No Hx Sleep Apnea: No Sleep Apnea Screening Result - Last Documented: Positive - Neurologic History Hx Cerebrovascular Accident: No Hx Seizures: No Hx Dementia: No - Endocrine History Hx Diabetes: No Hypothyroid: No Hyperthyroid: No Obesity: no Endocrine History Comment: osteopenia - Renal History Hx Renal Disorders: Yes Renal History Comment: renal stones - Liver History Hx Hepatic Disorders: Yes - Neurological & Psychiatric Hx Hx Neurological and Psychiatric Disorders: No - Cancer History Hx Cancer: No - Congenital Disorder History Hx Congenital Disorders: No - GI History GERD: no Hx Gastrointestinal Disorders: No - Chronic Pain History Chronic Pain: No - Surgical History Prior Surgeries: HERNIA REPAIR 80s, TONSIL, ADENOIDS REMOVED 60s, WRIST FX REPAIR 90s, Nephrostomy tube placed April 2018 ANE Review of Systems Review of Systems: - Exercise capacity METS (RN): 4 METS ANE Patient History - Allergies Allergies/Adverse Reactions: Penicillins Allergy (Unknown, Verified 05/24/18 19:26) - Home Medications Home Medications: Alendronate Sodium [Fosamax 70 MG (*)] 70 mg PO WE@0700 05/24/18 [Last Taken 1 Day Ago ~06/01/18] Atorvastatin Calcium [Lipitor 40 mg (*)] 40 mg PO DAILY 05/24/18 [Last Taken 1 Day Ago ~06/01/18] Herbals/Supplements -Info Only 1 ea PO DAILY 05/24/18 [Last Taken 1 Day Ago ~03/16] - NPO status NPO Since - Liquids (Date): 06/01/18 NPO Since - Liquids (Time): 22:00 NPO Since - Solids (Date): 06/02/18 NPO Since - Solids (Time): 10:00 - Anes Hx Anes Hx: no prior problems - Smoking Hx Smoking Status: Former smoker - Alcohol Use Alcohol Use: Rarely - Family Anes Hx Family Anes Hx: none Family Hx Anesthesia Complications: NO ANE Labs/Vital Signs - Labs Result Diagrams: 06/02/18 13:35 06/02/18 13:35 - Vital Signs Blood Pressure: 106/62 Heart Rate: 57 Respiratory Rate: 16 O2 Sat (%): 94 Height: 177.8 cm Weight: 71.668 kg ANE Physical Exam - Airway Neck exam: FROM Mallampati Score: Class 1 Mouth exam: normal dental/mouth exam - Pulmonary Pulmonary: clear to auscultation - Cardiovascular Cardiovascular: regular rate and rhythym ANE Anesthesia Plan Anesthesia Plan: general endotracheal anesthesia
--- NOTE | 2018-06-02 13:30 | PDHPUP ---
History & Physical Update H&P update statement: This history and physical update is based on an assessment of the patient which was completed after admission or registration (within 24 hours), but prior to the surgery/procedure. H&P update: changes noted (s/p bilateral nephrostomy tube placement for renal failure last week)
[2018-06-02 13:49] LABS: PLATELET COUNT 136 10^3/uL (150-400)
[2018-06-02] MEDS ORDERED: PROPOFOL 200 MG/20 ML VIAL ONE ×2 (13:56→15:25)
[2018-06-02] MEDS ORDERED: ROCURONIUM 50 MG/5 ML VIAL ONE (13:57)
[2018-06-02] MEDS ORDERED: DEXAMETHASONE 4 MG/ML VIAL ONE (13:57)
--- NOTE | 2018-06-02 15:23 | POSTOPPROG ---
Post Op Note Date of Operation: 06/02/18 Surgeon: Susan Hilton (# [id number]) Anesthesia: GET(General Endotracheal) Pre-op Diagnosis: Bilateral ureterolithiasis & nephrostomy tubes Post-op Diagnosis: Bilateral ureterolithiasis & nephrostomy tubes Procedure: Bilateral ureteroscopy w/ right laser litho, left manip, bilateral stent & Findings: See op note Inf/Abcess present in the surg proc area at time of surgery?: No EBL: Minimal Complications: None Drains: Other (4.7 Fr. x 26 cm bilateral ureteral stents) Specimen(s): None
[2018-06-02] MEDS ORDERED: IOPAMIDOL (ISOVUE-300) 150 ML BTL ONE (15:52)
[2018-06-02] MEDS ORDERED: ONDANSETRON 4 MG/2 ML VIAL ONE (16:51)
[2018-06-02] MEDS ORDERED: BACITRACIN ZINC 14.2 GM OINTTUBE TP ONE (16:57)
[2018-06-02] MEDS ORDERED: SUGAMMADEX SODIUM 200 MG/2 ML VIAL IVP ONE (17:04)
[2018-06-02] MEDS ORDERED: DEXAMETHASONE 4 MG/ML VIAL IVP PRN (17:31)
[2018-06-02] MEDS ORDERED: oxyCODONE IR 5 MG TAB PO PRN (17:31)
[2018-06-02] MEDS ORDERED: NALOXONE HCL 0.4 MG/ML INJ IVP PRN (17:31)
[2018-06-02] MEDS ORDERED: HYDROCODONE/APAP 5/325 TAB PO PRN (17:31)
[2018-06-02] MEDS ORDERED: fentaNYL 100 MCG/2 ML INJ IVP PRN (17:31)
--- NOTE | 2018-06-02 17:34 | POSTANESTH ---
Post Anesthetic Evaluation Cardiovascular Status: Normal, Stable Respiratory Status: Normal, Stable Level of Consciousness/Mental Status: Can Participate in Eval Pain Control: Adequate, Prn Tx Ordered Nausea/Vomiting Control: Adequate, Prn Tx Ordered Complications Possibly Related to Anesthesia: None Noted
[2018-06-02 19:26] VITALS: BP 134/74
--- NOTE | 2018-06-02 21:07 | GOP ---
[f rep st] OPERATIVE REPORT DATE OF OPERATION: 06/02/2018 SURGEON: Susan Hilton MD ANESTHESIA: General endotracheal. PREOPERATIVE DIAGNOSIS: 1. Bilateral ureteral calculi. 2. Recent obstructive uropathy with renal failure and bilateral nephrostomy tube placement. POSTOPERATIVE DIAGNOSIS: 1. Bilateral ureteral calculi. 2. Recent obstructive uropathy with renal failure and bilateral nephrostomy tube placement. PROCEDURE PERFORMED: 1. Cystourethroscopy, bilateral retrograde pyelography. 2. Left ureteroscopy with calculus manipulation and ureteral stent placement. (4.7-Kazakh x 26 cm). 3. Right ureteroscopy with holmium laser calculus lithotripsy and ureteral stent placement (4.7-Kazakh x 26 cm). 4. Bilateral nephrostomy tube removal with fluoroscopic guidance. FINDINGS: 1. Sizeable left proximal ureteral calculus that was manipulated into left renal collecting system. 2. Two or 3 sizable right proximal ureteral calculi that were treated as mentioned in the body of the operative report. SPECIMENS: None. ESTIMATED BLOOD LOSS: Minimal. INDICATIONS: This gentleman was admitted approximately 1 week ago with renal failure as a result of bilateral obstructing ureterolithiasis for which he underwent nephrostomy tube placement. He has improved since that time and presents for operative management of his ureteral calculi. The indications for the procedures as well as potential risks and complications were discussed with the patient preoperatively. He appeared to understand, his questions were answered, and he wished to proceed. Written informed surgical consent was thereafter obtained. DESCRIPTION OF PROCEDURE: The patient was brought to the operating room and administered general endotracheal anesthesia. He was carefully placed in the dorsal lithotomy position on the cystoscopic table. The genital area was sterilely prepped with Betadine scrub and paint then draped in usual sterile fashion. Cystoscopy was performed with a 30-degree lens through a 22-Kazakh sheath. Anterior urethra was unremarkable. 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 Examination of the bladder revealed a moderately to heavily trabeculated pattern, but no areas of abnormal erythema, tumors, nor foreign bodies. Ureteral orifices were normal in regards to shape and position along the trigone. A 5-Kazakh open-ended ureteral catheter was used to perform retrograde pyelography initially on the left side. This revealed a sizable calculus in the proximal ureter at about L3 with mild proximal hydronephrosis. Left-sided nephrostomy tube appeared to be barely within a lower pole calyx on the left side. There were multiple other stones seen within the left renal collecting system. I then passed a 0.035 inch hydrophilic angle tipped guidewire up the left ureter, through the ureteral catheter, and advanced it until it was within the renal collecting system as noted fluoroscopically. The ureteral catheter was then removed and the entire length of the ureter distal to the location of the calculus was dilated with 2 separate inflations and deflations of a 10 cm balloon by maintaining a pressure of 16 atmospheres for about 4 minutes on each occasion. The balloon dilator and cystoscope were then removed while keeping the guidewire in place. Semi-rigid ureteroscopy was performed alongside the guidewire. The calculus was seen in the most proximal aspect of the ureter. I then passed a 365 micron holmium laser fiber through the ureteroscope and attempted to perform lithotripsy. However, with the 1st initial contact of the activated laser fiber onto the stone, the stone retropulsed into the left renal collecting system. Because of the large renal stone burden already present on this side, I decided not to proceed with flexible ureterorenoscopy. The patient is going to need percutaneous nephrostolithotomy on this side. Therefore, I removed the ureteroscope and advanced the cystoscope over the guidewire. A 4.7-Kazakh x 26 cm hydrophilic ureteral stent was advanced over the guidewire until it was properly positioned as seen fluoroscopically in the kidney and cystoscopically in the bladder. I then turned my attention to the right side. A 5-Kazakh open-ended ureteral catheter was used to perform retrograde pyelography on this side. This revealed a large calculus in the proximal ureter at about L4 with mild proximal hydronephrosis and hydroureter. The nephrostomy tube pigtail on this side was located in the renal pelvis. I then advanced the guidewire through the ureteral catheter and was able to navigate it proximal to the calculus and into the renal collecting system as noted fluoroscopically. The entire length of the ureter distal to the obstruction on this side was again dilated with the 10 cm balloon. Semi-rigid ureteroscopy was then performed. The most distal calculus was identified within the ureter at the location noted above. The 365 micron holmium laser fiber was used to tediously fragment this large calculus into as small of pieces as possible. After fragmenting the initial calculus, there appeared to be at least 2 other calculi sitting proximal to the one that was initially fragmented. I was able to fragment all the visible calculi into fragments that appeared to be no larger than 1-2 mm. None of these were retrieved. I was able to navigate the ureteroscope into the renal collecting system, and no other abnormalities were identified. Some of the calculus fragments did flush into the bladder during the course of the case. The ureteroscope was then removed while keeping the guidewire in place. I then went to the patient's right flank. The nephrostomy tube was removed by placing a wire through it, and under fluoroscopic guidance, the nephrostomy tube pigtail was released, and it was removed over the wire without complication. I then returned to the patient's perineum with new gloves and gown. The cystoscope was reinserted over the guidewire, and a 4.7-Kazakh x 26 cm hydrophilic ureteral stent advanced over the guidewire on the right side until it was seen in proper position fluoroscopically in the kidney and cystoscopically in the bladder. The bladder was then drained of all return, which was relatively clear. As a result of the procedure, there was basically a bunch of sand in his bladder, which I did not purposely evacuate for specimen. A 16-Kazakh Gerardo catheter was placed to gravity drainage without complication. The patient was then transferred to the [facility] while still intubated. The right and left nephrostomy sites were dressed with bacitracin ointment, 4 x 4 gauze, and tape. The patient was then awakened, extubated, transferred to his bed, and taken to the recovery room. He tolerated the procedure well overall. COMPLICATIONS: None. DISPOSITION: He was transferred to the recovery room in stable condition. Gerardo catheter will be kept in place for 24 hours with the patient removing it at home. The patient will then follow up in my office in approximately 3 weeks with MAURY at that time. /[id number]/MODL MTDD
== END 2018-06-02 19:15 | disposition home or self-care (01) ==
LOC: FSGY 11:26
PROVIDERS: ATTEND Specialist
PROC: 0TC68ZZ Extirpation of Matter from Right Ureter, Via Natural or Artificial Opening Endoscopic (ICD-10-PCS; principal; 2018-06-02 13:30)
PROC: 0TC78ZZ Extirpation of Matter from Left Ureter, Via Natural or Artificial Opening Endoscopic (ICD-10-PCS; principal; 2018-06-02 13:30)
PROC: BT141ZZ Fluoroscopy of Kidneys, Ureters and Bladder using Low Osmolar Contrast (ICD-10-PCS; principal; 2018-06-02 13:30)
PROC: 0T788DZ Dilation of Bilateral Ureters with Intraluminal Device, Via Natural or Artificial Opening Endoscopic (ICD-10-PCS; principal; 2018-06-02 13:30)
DX: N13.2 Hydronephrosis with renal and ureteral calculous obstruction (principal); N40.3 Nodular prostate with lower urinary tract symptoms; M81.0 Age-related osteoporosis without current pathological fracture; E72.53 Primary hyperoxaluria; Z87.442 Personal history of urinary calculi; Z88.0 Allergy status to penicillin
CPT/HCPCS: 50389; 52332; 52352; 52356; 76001; C1726; C1758; C1769; C2625; J1100; J1956; J2405; J2704; Q9967

== ENCOUNTER → 2018-06-26 | Outpatient (CLI) | payer OTHER | LOC: CIMAGING 17:54 | PROVIDERS: ATTEND Specialist | DX: N20.1 Calculus of ureter (principal) | CPT/HCPCS: 74018-PO ==

== ENCOUNTER → 2018-08-10 | Outpatient (CLI) | payer OTHER | LOC: FIMAGING 10:38 | PROVIDERS: ATTEND Specialist | DX: Z09 Encounter for follow-up examination after completed treatment for conditions other than malignant neoplasm (principal); Z87.442 Personal history of urinary calculi ==